=== PATIENT | female | born 1945 | race Asian ===

== ENCOUNTER → 2018-01-22 | Outpatient (CLI) | payer MEDICARE ==
[~2018-01-22] MED LIST: GADOBENATE DIMEGLUMINE 1 ML IV ONE
[2018-01-22 09:37] LABS: BASOPHILS % 0.4 % (0.0-1.0); EOSINOPHILS # (AUTO) 0.2 (0.0-0.4); EOSINOPHILS % 4.4 % (0.0-6.0); HEMATOCRIT 37.3 % (34.2-44.1); HEMOGLOBIN 12.7 g/dL (12.0-16.0); LYMPHOCYTES # (AUTO) 1.8 (1.0-3.2); MEAN CORPUSCULAR HEMOGLOBIN 32.1 pg (28-32); MEAN CORPUSCULAR VOLUME 94.2 fL (81-99); MONOCYTES # (AUTO) 0.5 (0.2-0.8); MONOCYTES % 9.5 % (4.4-11.3); NEUTROPHILS % 53.5 % (38.7-80.0); PLATELET COUNT 178 x10e3/uL (140-360); RED BLOOD COUNT 3.96 x10e6/uL (3.6-5.1); RED CELL DISTRIBUTION WIDTH 12.6 % (11.7-14.4)
[2018-01-22 09:49] LABS: ALBUMIN 4.1 g/dL (3.5-5.0); ANION GAP 13.2 mmol/L (8-16); CALCIUM 10.3 mg/dL (8.4-10.2); CHOL/HDL RATIO 2.3 (3.0-3.6); CREATININE, SERUM 1.17 mg/dL (0.57-1.11); POTASSIUM 4.2 mmol/L (3.5-5.1)
[2018-01-22 09:51] LABS: INR 1.22; PROTHROMBIN TIME 14.5 seconds (11.9-14.5)
[2018-01-22 09:52] LABS: PARTIAL THROMBOPLASTIN TIME 27.5 seconds (23.8-35.5)
[2018-01-22 10:01] LABS: CREATININE,URINE RANDOM 38.09 mg/dL (47-110)
[2018-01-22 10:04] LABS: TOTAL PROTEIN, URINE < 6.8 mg/dL (1-14)
--- NOTE | 2018-01-22 11:54 | Diagnostic Imaging Report ---
PROCEDURE: MRI ABDOMEN W \T\ W/O CONTRAST COMPARISON: MRI abdomen 01/12/1217. 01/02/2015. INDICATIONS: Patient has history of HCC, status post liver transplant TECHNIQUE: A comprehensive examination was performed utilizing a variety of imaging planes and imaging parameters to optimize visualization of suspected pathology. Images were obtained both before and after intravenous gadolinium infusion. CONTRAST: 10 mL of gadolinium based contrast (MultiHance) FINDINGS: LIVER: Transient perfusion attenuation areas are noted throughout the liver. Transplanted liver appears within normal limits in signal intensity. No evidence of focal mass. There is a stable area of low signal intensity at the liver dome on T1 and T2 best seen on postcontrast examination on series 10 image 154. This focus is consistent with area of confluent fibrosis status post surgery. The intrahepatic and extrahepatic biliary ducts are within normal limits without evidence of stricture or dilatation. The gallbladder is surgically absent. PANCREAS: Normal. SPLEEN: Normal. KIDNEYS: 3.0 cm simple cyst in the inferior pole of the right kidney. There is a 1.4 cm simple cyst in the medial upper pole of the left kidney. ADRENALS: Normal. AORTA/VASCULAR: Mild tortuosity and atherosclerotic disease. RETROPERITONEUM: Normal. BOWEL/MESENTERY: Normal. BONES: Degenerative changes of the thoracolumbar spine with metallic fusion hardware artifacts. CONCLUSION: 1. Findings are consistent with a normal in appearance transplanted liver. No focal suspicious lesion. 2. Hepatic fibrosis in the liver dome. 3. Bilateral renal cysts. Dictated by: Franki Mims M.D. on 01/22/2018 at 11:53 Electronically approved by: Franki Mims M.D. on 01/22/2018 at 11:53
== END ==
LOC: MRI 08:39
PROVIDERS: ATTEND Internal Medicine Hepatology
DX: Z94.4 Liver transplant status (principal)
CPT/HCPCS: 36415; 74183; 80053; 80061; 80197; 82105; 82378; 82570; 83735; 84156; 85025; 85610; 85730; 86644; 86645; 87522